=== PATIENT | female | born 1950 | race Caucasian/White ===

== ENCOUNTER 2024-12-18 08:41 | Outpatient (CLI) | payer MEDICARE, SELFPAY ==
--- OUTSIDE RECORDS SUMMARY | 2021-12-18 07:45 | XMS_ITS | Continuity of Care Document ---
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 Day after surgery 1 drop 3x/day x 1 wk. - Active SURGERY DATES: 09/04 & 09/18 AT [facility] [id number] PHONE: [phone] NO PRED DUE TO DEXTENZA SUPER B MAXI COMPLEX (unknown strength) Not Available - Active OSTERA (unknown strength) Not Available - Active MULTIVITAMINS (unknown strength) take 1 tablet by oral route every day Not Available - Active FLONASE ALLERGY RELIEF (unknown strength) spray 1 - 2 spray by intranasal route every day in each nostril as needed Not Available - Active CLARITIN (unknown strength) take 10 milliliter by oral route every day Not Available - Active ketorolac 0.5 % eye drops Bring to surgery unopened and use as directed day of surgery. Day after surgery 1 drop 3x/day x 4 wks. - No Longer Active Procedures Procedure Date REFRACTION POSTOP FOLLOW-UP VISIT POSTOP FOLLOW-UP VISIT Extracapsular Cataract Removal With Inse rtion Of Intraocular Lens Insertion Of Drug-eluting Implant; Inclu rachel Punct REFRACTION OFFICE/OUTPATIENT VISIT, EST OPHTHALMIC BIOMETRY POSTOP FOLLOW-UP VISIT Extracapsular Cataract Removal With Inse rtion Of Intraocular Lens Insertion Of Drug-eluting Implant; Inclu rachel Punct Corneal Topography OFFICE/OUTPATIENT VISIT, EST OPHTHALMIC BIOMETRY REFRACTION OCT POSTERIOR SEG RETINA OFFICE/OUTPATIENT VISIT, NEW Advance Directives Directive Yes / No Effective Date File Name No Information Encounters Encounter Description Practice Location Reason(s) For Visit Diagnoses Date Provider Providers Copied on Encounter [facility] [place], [id number] tel:[phone] [facility] left eye 2 week(s) (chief complaint) Pseudophakia of left eye Nov- 2 Millan OD Bhaskar. [facility], [facility] [place], [place], [id number]. tel:[phone] Referring Provider: Luz Gomez OD, [address] [place] [address], [address]. tel:[phone] [facility], [facility] [place], [id number] tel:[phone] [facility] left eye 1 day(s) (chief complaint) Pseudophakia of left eye Sep-0 2 Millan OD Bhaskar. [facility], [facility] [place], [id number]. tel:[phone] Referring Provider: Luz Gomez OD, [address] [place] [address], [address]. tel:[phone] [facility], [facility] [place], [id number] tel:[phone] No Information 2 Gregorio Hernandez. [facility], [facility] [place], [id number]. tel:[phone] Referring Provider: Luz Gomez OD, [address] [place] [address], [address]. tel:[phone] OFFICE/OUTPA TIENT VISIT, EST [facility], [facility] [place], [id number] tel:[phone] BEVERLY Gonzales s/p cataract sx OD right eye 1 week(s) (chief complaint) cataract left eye month(s) (chief complaint) Pseudophakia of right eyeCombined form of age-related cataract, left eye 2 Gregorio Hernandez. [facility], [place], [id number]. tel:[phone] Referring Provider: Luz Gomez OD, [address] [place] [address], [address]. tel:[phone] [facility], [facility] [place], [id number] tel:[phone] BEVERLY Gonzales No Information 2 Gregorio Hernandez. [facility], [facility] [place], [id number]. tel:[phone] Referring Provider: Luz Gomez OD, [address] [place] [address], [address]. tel:[phone] [facility], [facility] [place], [id number] tel:[phone] BEVERLY [place] PO right eye 1 day(s) (chief complaint) Pseudophakia of right eye 2 Monty Muro. [facility], [place], [id number]. tel:[phone] Referring Provider: Luz Gomez OD, [address] [place] [address], [address]. tel:[phone] [facility], [facility] [place], [id number] tel:[phone] No Information 2 Gregorio Hernandez. [facility], [facility] [place], [id number]. tel:[phone] Referring Provider: Luz Gomez OD, [address] [place] [address], [address]. tel:[phone] [facility], [facility] [place], [id number] tel:[phone] [facility] [place] No Information 2 Gregorio Hernandez. [facility], [facility] [place], [id number]. tel:[phone] OFFICE/OUTPA TIENT VISIT, [facility] [address] [place], [id number] tel:[phone] [facility] comments only (chief complaint) comments only (chief complaint) Combined form of age-related cataract, right eye 2 Gregorio Hernandez. [facility], [facility] [place], [id number]. tel:[phone] Referring Provider: Luz Gomez OD, [address] [place] [address], [address]. tel:[phone] [facility], [facility] [place], [id number] tel:[phone] [facility] No Information 2 Gregorio Hernandez. [facility], [facility] [place], [id number]. tel:[phone] Referring Provider: Luz Gomez OD, [address] [place] [address], [address]. tel:[phone] OFFICE/OUTPA TIENT VISIT, [facility], [address] [place], [place], [id number] tel:[phone] [facility] decreased vision right eye and left eye (chief complaint) Combined form of age-related cataract, right eyeCombined form of age-related cataract, left eyeEpiretinal membrane (ERM) of both eyes 2 Gregorio Hernandez. [facility], [address] [place] [address] [place], [place], [id number]. tel:[phone] Referring Provider: David Perkins MD, [facility] [address] [place] [address] [place], [address]. tel:[phone] Family History Family Member Type Diagnosis Age At Onset Father Problem hypertension Payers Payer name Insurance type Covered republican ID Authoriza tion(s) Medicare [place] [id number] HA 12 [id number] Social History Type Description Quantity Date Captured Comments Alcohol Use Details Unknown Caffeine Use Details Unknown Tobacco Use Status Smoking Status No Information Sex Female Chief Complaint And Reason For Visit From encounter dated '12/18/2021 12:45'. PO left eye 2 week(s) (chief complaint) Reason For Referral Reason For Referral No Information Plan Of Treatment Date Type Action Status Goal Tobacco cessation counseling completed History Of Present Illness Encounter Date Complaint History Of Prese nt Illness PO The 71 year old presents for evaluation of PO in the left eye. It started about 2 week(s) ago. PT. states eye feels fine. Every once in a while she gets a wave in her peripheral, said she hasn't had it in a couple days. PO The 71 year old presents for evaluation of PO in the left eye. It started about 1 day(s) ago. Pt. states eye feels okay. Took drop this AM, did not bring but should be using Ketorolac and Moxi. top, cc, routine, standard lens, insertion of DextenzaAIM: Emmetropia. cataract The 71 year old presents for evaluation of cataract in the left eye. It started month(s) ago. The symptom is constant. The condition is not any better. In addition, the condition is associated with reading and seeing road signs.. s/p cataract sx OD The 71 year o ld presents for evaluation of s/p cataract sx OD in the right eye. It started about 1 week(s) ago. The condition is improving. ZCBOO -0.2Moxi, Ketorolac, Pred - pt said she's following the check off sheet, but she doesn't remember which drops she's taking and how often PO The 71 year old presents for evaluation of PO in the right eye. It started about 1 day(s) ago. PT. states eye is okay, a little itchy. Took drops this AM, did not bring but should be using Moxi. and Ketorolac. top, cc, routine, standard lens vs advanced technology lensesDEXTENZA implant/Pred as alternativeAIM: Emmetropia vs MF/Prognosis guarded 2^ comments only Pt here for LISSY & IOL then to ATC comments only pt here to discu ss refractive surgery options decreased vision The 71 year old presents for evaluation of decreased vision in the right eye and left eye. It affects OU. The symptom is constant. It occurs always. The condition is worsening. The condition is described as fuzzy vision. In addition, the condition is associated with reading. Functional Status Date Functional Assessmen t No Information Instructions Date Instruction Additional Infor allan Return in 1 year wit h any MD or OD for Complete. Related to Pseudophakia of left eye Impression/Plan Related to Pseud ophakia of left eye Return in in accorda nce with current recall Related to Pseudophakia of left eye Impression/Plan Related to Pseud ophakia of left eye Return in as scheduled Related t o Combined form of age-related cataract, left eye Impression/Plan Related to Combi kiara form of age-related cataract, left eye Impression/Plan Related to Pseud ophakia of right eye Return in in accorda nce with current recall Related to Pseudophakia of right eye Impression/Plan Related to Pseud ophakia of right eye Return in as scheduled Related t o Combined form of age-related cataract, right eye Impression/Plan Related to Combi kiara form of age-related cataract, right eye Return in Next avail able day with ATC SAME DAY ATC ON SPECIALS REPEAT IOL MASTER AND TOPOGRAPHY Related to 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 Condition: established, stable Patient Care Teams Name Effective Dates (start - stop) Status Members No Information
--- OUTSIDE RECORDS SUMMARY | 2022-02-11 06:28 | XMS_ITS | Continuity of Care Document ---
Author Organization [facility] Address [address] [place] [address] Phone Care Team Providers Care Lathe Turner Name Role Phone Alexey TORRES MD, Fer Unavailable Unavailable Allergies, Adverse Reactions, Alerts Substance Reaction Status Criticality No Known Allergies Active No Inform ation Medications Medication Instructions Dosage Effective Dates (start - stop) Status Comments Vitamin B-12 1,000 mcg tablet take 1 tablet by oral route every day 1 tablet - Active Crestor 10 mg tablet take 1 tablet by or al route every day 10 MG - Active multivitamin tablet take 1 tablet by ora l route every day with food - Active metoprolol tartrate 50 mg tablet take 1 tablet by oral route 2 times every day with meals 50 MG - Active lisinopril 20 mg tablet take 1 tablet by oral route every day 20 MG - Active fexofenadine 180 mg tablet take 1 tablet by oral route every day 180 MG - Active amlodipine 5 mg tablet take 1 tablet by oral route every day 5 MG - Active Procedures Procedure Date No Charge No Show Fee-Testing 2 No Charge No Show Fee-Testing 2 Office Visit Level 4 ACP Disc And Doc, No Surrogate Documente d Echo, Complete, Interp Advance Directives Directive Yes / No Effective Date File Name No Information Encounters Encounter Description Practice Location Reason(s) For Visit Diagnoses Date Provider Providers Copied on Encounter [facility], [address], [place], [address], [place] tel:[phone] [place] C[facility] No Information 2 Alexey TORRES Fer. [facility], [address], [place], [place], [id number], [place]. tel:[phone] [facility], [address], [place], [address], [place] tel:[phone] DX [place] [facility] No Information 2 Alexey TORRES Fer. [facility], [address], [place], [place], [id number], [place]. tel:[phone] Referring Provider: Fer Blackburn MD, [facility] [address], [place], [address]. tel:[phone] [facility], [address], [place], [address], [place] tel:[phone] DX [place] [facility] No Information 2 Alexey TORRES Fer. [facility], [address], [place], [place], [id number], [place]. tel:[phone] Referring Provider: Fer Blackburn MD, [facility] [address], [place], [address]. tel:[phone] Office Visit Level 4 [facility], [address], [place], [address], [place] tel:[phone] [place] [facility] Dyspnea (chief complaint) Palpitatio ns (chief complaint) Cardiovasc ular Review (chief complaint) Essential hypertensionD yspnea on exertionDysli pidemiaPremat ure atrial contractions 2 Alexey TORRES Fer. [facility], [address], [place], [place], [id number], [place]. tel:[phone] Referring Provider: Meño Armas, [address] [place] [address], [place], [address]. tel:[phone] [facility], [address], [place], [address], [place] tel:[phone] [place] CV No Information 2 Alexey TORRES Fer. [facility], [address], [place], [place], [id number], [place]. tel:[phone] Referring Provider: Birgit Hess, [address] [place], [address]. tel:[phone] Family History Family Member Type Diagnosis Age At Onset Mother Problem (finding) Myocardial infarction ( Cause Of ) 76 Payers Payer name Insurance type Covered green party ID Authoriza tion(s) Medicare [place] MB [id number] [facility] 12 [id number] Social History Type Description Quantity Date Captured Comments Alcohol Use Details Unknown Caffeine Use Details Unknown Tobacco Use Status No Information Smoking Status No Information Sex Female Chief Complaint And Reason For Visit No Information Reason For Referral Reason For Referral No Information History Of Present Illness Encounter Date Complaint History Of Prese nt Illness Dyspnea The patient is e valuated for dyspnea (shortness of breath). This a new symptom. The patient qualifies the shortness of breath as inability to get air in. The shortness of breath is aggravated by moderate activity. Palpitations The patient comp lains of palpitations. The patient describes the palpitations as a rapid heart beat. The palpitations are associated with dyspnea. Cardiovascular Review The patien t has been having palpitations. Ms. Wylie has not had syncope or near syncope. She denies claudication. There is no discoloration or ulceration of the lower extremities. She has had no TIA or stroke-like symptoms. The patient has no symptoms attributable to valvular heart disease. Functional Status Date Functional Assessmen t No Information Instructions Date Instruction Additional Infor mation PCP Wellness Visit Assessments Type Assessment Date No Information Patient Care Teams Name Effective Dates (start - stop) Status Members No Information
--- NOTE | ~2024-12-18 | DEXA_ITS ---
Bone Density Report Name: TRAVIS ESPARZA Age: 74 Sex: Female Ethnicity: White Date of : 1950 Indication: postmenopausal; screening for osteoporosis; height loss; Referring Provider: CONNIE, ENMA Study: Bone densitometry was performed. Exam Date: December 18, 2024 Accession number: [id number] Bone Density: Region BMD T-score Z-score Classification AP Spine(L1-L4) 0.903 -1.3 1.0 Osteopenia Femoral Neck (Left) 0.681 -1.5 0.5 Osteopenia Total Hip (Left) 0.767 -1.4 0.3 Osteopenia Femoral Neck (Right) 0.624 -2.0 0.0 Osteopenia Total Hip (Right) 0.798 -1.2 0.6 Osteopenia Total Hip Mean 0.782 -1.3 0.5 Osteopenia World Health Organization criteria for BMD impression classify patients as: Normal (T-score at or above -1.0), Osteopenia (T-score between -1.0 and -2.5), or Osteoporosis (T-score at or below -2.5). 10-year Fracture Risk(1): Major Osteoporotic Fracture 12% Hip Fracture 2.7% Reported Risk Factors: [place] (), Neck BMD=0.624, BMI=34.1 (1) FRAX(R) Version 3.08. Fracture probability calculated for an untreated patient. Fracture probability may be lower if the patient has received treatment. Clinical Information Provided by Patient: Has used the following medications: Vitamin D Patient maximum height was 63.0 Menopause Age: 55 Drinks caffeinated beverages Onset of menses at age 11 Number of children 1 Impression: The patient has low bone mass, based on the Right Femoral Neck T-score. The patient has an estimated ten-year risk of hip fracture of 2.7% and an estimated ten-year risk of major fracture of 12%, based on the WHO FRAX algorithm. Discussion: BONE DENSITY IS LOW AT ONE OR MORE SKELETAL SITES. This patient's lowest T-score is low at one or more skeletal sites. It meets the World Health Organization's (WHO) criteria for ?low bone mass? (T-score between -1.0 and -2.5). The patient's 10-year risk of fracture as calculated by FRAX is less than the threshold where pharmacological therapy is recommended by the National Osteoporosis Foundation (NOF). However, all treatment decisions require clinical judgment and consideration of individual patient factors, including patient preferences, comorbidities, previous drug use, risk factors not captured in the FRAX model (e.g., frailty, falls, vitamin D deficiency, increased bone turnover, interval significant decline in bone density) and possible under or overestimation of fracture risk by FRAX. The patient should follow a healthful lifestyle (good nutrition with adequate calcium and vitamin D, and appropriate weight-bearing exercise). Follow-Up: Consider repeating this study in 2 to 3 years to reassess this patient's status, or sooner if there is some new clinical indication. Reported by: ABIMAEL on 12/18/2024 10:50:00 AM. Reviewed, dictated and finalized at location A.
--- NOTE | ~2024-12-18 | MM_ITS ---
EXAMINATION: MM screening ned BI w rashad HISTORY: Screening TECHNIQUE: Craniocaudal and mediolateral oblique 3-D tomosynthesis images were obtained and synthetic 2-D images were generated. CAD analysis was submitted and interpreted. COMPARISON: None provided BREAST PARENCHYMAL COMPOSITION: The breasts are heterogeneously dense, which may obscure small masses. FINDINGS: There is no evidence of suspicious mass, calcification, or architectural distortion to suggest malignancy in either breast. IMPRESSION: 1. No mammographic evidence of malignancy. 2. Recommend routine screening mammography in one year. BI-RADS Category 1: Negative Reviewed, dictated and finalized at location B.
== END 2024-12-18 08:42 | disposition home or self-care (01) ==
PROVIDERS: Visit Provider Physician Assistant
DX: Z12.31 Encounter for screening mammogram for malignant neoplasm of breast (principal); Z78.0 Asymptomatic menopausal state; M85.88 Other specified disorders of bone density and structure, other site; M85.852 Other specified disorders of bone density and structure, left thigh; M85.851 Other specified disorders of bone density and structure, right thigh
CPT/HCPCS: 77063; 77067; 77080